=== PATIENT | male | born 2000 | race Caucasian/White ===

== ENCOUNTER → 2020-03-03 | Outpatient (CLI) | payer MEDICAID ==
[2020-03-03 17:12] LABS: APPEARANCE, URINE CLEAR (CLEAR); BACTERIA, URINE AUTO NEGATIVE (NEGATIVE); BILIRUBIN, URINE AUTO NEGATIVE (NEGATIVE); BLOOD, URINE BLOOD NEGATIVE (NEGATIVE); COLOR, URINE YELLOW (YELLOW); GLUCOSE, URINE (UA) AUTO 1+ mg/dL (NEGATIVE); KETONE, URINE AUTO TRACE mg/dL (NEGATIVE); LEUKOCYTE ESTERASE, URINE AUTO NEGATIVE (NEGATIVE); NITRITE, URINE AUTO NEGATIVE (NEGATIVE); PROTEIN, URINE AUTO 1+ mg/dL (NEGATIVE); RBC, URINE AUTO 0 /HPF (0-3); SPECIFIC GRAVITY URINE AUTO 1.029 (1.002-1.035); SQUAMOUS EPITHELIAL CELL UR AU 0 /HPF (0-6); UROBILINOGEN, URINE AUTO 0.2 mg/dL (0.0-2.0); WBC, URINE AUTO 0 /HPF (0-3)
[2020-03-03 17:33] LABS: BASO % 0.3 % (0.0-1.0); EOS # 0.2 10^3/uL (0.0-0.5); EOS % 1.1 % (0.0-3.0); HEMATOCRIT 46.4 % (42.0-52.0); HEMOGLOBIN 15.2 g/dl (13.5-17.5); LYMPH # 2.3 10^3/uL (1.5-5.0); LYMPH % 14.4 % (24.0-44.0); MEAN CORPUSCULAR HEMOGLOBIN 26.4 pg (27.0-33.0); MEAN CORPUSCULAR HGB CONC 32.8 g/dl (32.0-36.5); MEAN CORPUSCULAR VOLUME 80.7 fl (80.0-96.0); MONO # 0.9 10^3/uL (0.0-0.8); MONO % 5.6 % (0.0-5.0); NEUTROPHILS # 12.4 10^3/uL (1.5-8.5); NEUTROPHILS % 78.1 % (36.0-66.0); PLATELET COUNT, AUTOMATED 276 10^3/uL (150-450); RED BLOOD COUNT 5.75 10^6/uL (4.30-6.10); WHITE BLOOD COUNT 15.9 10^3/uL (4.0-10.0)
[2020-03-03 17:45] LABS: ALBUMIN 4.2 GM/DL (3.2-5.2); ALT/SGPT 32 U/L (12-78); BILIRUBIN,TOTAL 0.3 MG/DL (0.2-1.0); BLOOD UREA NITROGEN 12 MG/DL (7-18); CALCIUM LEVEL 9.8 MG/DL (8.5-10.1); CARBON DIOXIDE LEVEL 25 MEQ/L (21-32); CHLORIDE LEVEL 103 MEQ/L (98-107); GLUCOSE, FASTING 174 MG/DL (70-100); POTASSIUM SERUM 4.3 MEQ/L (3.5-5.1); SODIUM LEVEL 137 MEQ/L (136-145); TOTAL PROTEIN 7.8 GM/DL (6.4-8.2)
[2020-03-03 17:57] LABS: HEPATITIS B SURFACE ANTIBODY NEGATIVE (POSITIVE)
[2020-03-03 18:03] LABS: HEPATITIS B SURFACE ANTIGEN NEGATIVE (NEGATIVE)
[2020-03-03 18:38] LABS: HEPATITIS C VIRUS ABY INDEX > 11.0 INDEX (<0.8)
[2020-03-07 05:07] LABS: HEPATITIS B CORE ANTIBODY IGG Negative (Negative)
== END ==
LOC: M LAB 16:01
PROVIDERS: ATTEND Nurse Practitioner Family
DX: Z02.2 Encounter for examination for admission to residential institution (principal)

== ENCOUNTER → 2020-03-08 | Outpatient (CLI) | payer MEDICAID ==
[2020-03-08 14:56] LABS: HEPATITIS B SURFACE ANTIBODY NEGATIVE (POSITIVE); HEPATITIS B SURFACE ANTIGEN NEGATIVE (NEGATIVE)
--- NOTE | 2020-03-09 01:48 | REP ---
INDICATION: QUESTION POSITIVE TB COMPARISON: None. TECHNIQUE: PA and lateral. FINDINGS: The mediastinum and cardiac silhouette are normal. The lung hughes are clear and without acute consolidation, effusion, or pneumothorax. The skeletal structures are intact and normal. IMPRESSION: No acute cardiopulmonary process. <Electronically signed by Justice Olvera > 03/09/20 [id number]
[2020-03-11 02:08] LABS: HEPATITIS A IgG TOTAL Positive (Negative); HEPATITIS C QUANTITATION HCV Not Detected IU/mL (.)
== END ==
LOC: M LAB 13:32
PROVIDERS: ATTEND Nurse Practitioner Family
DX: B18.2 Chronic viral hepatitis C (principal); B15.9 Hepatitis A without hepatic coma; B16.9 Acute hepatitis B without delta-agent and without hepatic coma

== ENCOUNTER → 2020-04-14 | Outpatient (REF) | payer MEDICAID ==
[2020-04-14 16:12] LABS: ALBUMIN 4.5 GM/DL (3.2-5.2); ALT/SGPT 50 U/L (12-78); BILIRUBIN,DIRECT < 0.1 MG/DL (0.0-0.2); BILIRUBIN,TOTAL 0.3 MG/DL (0.2-1.0); TOTAL PROTEIN 7.5 GM/DL (6.4-8.2)
[2020-04-14 17:19] LABS: HIV 1&2 SCREEN CENTAUR NEGATIVE (NEGATIVE)
[2020-04-16 23:07] LABS: HEPATITIS C QUANTITATION HCV Not Detected IU/mL (.)
== END ==
LOC: M SFHCPLAZ 14:10
PROVIDERS: ATTEND Internal Medicine Infectious Disease
DX: Z86.19 Personal history of other infectious and parasitic diseases (principal)

== ENCOUNTER → 2020-08-02 | Outpatient (CLI) | payer MEDICAID ==
[2020-08-02 14:42] LABS: HEMOGLOBIN A1c 5.3 %
[2020-08-02 14:56] LABS: ALBUMIN 4.7 GM/DL (3.2-5.2); ALT/SGPT 60 U/L (12-78); BILIRUBIN,TOTAL 0.3 MG/DL (0.2-1.0); BLOOD UREA NITROGEN 14 MG/DL (7-18); CALCIUM LEVEL 9.9 MG/DL (8.5-10.1); CARBON DIOXIDE LEVEL 30 MEQ/L (21-32); CHLORIDE LEVEL 105 MEQ/L (98-107); CREATININE FOR GFR 0.83 MG/DL (0.70-1.30); GLUCOSE, FASTING 112 MG/DL (70-100); POTASSIUM SERUM 4.6 MEQ/L (3.5-5.1); SODIUM LEVEL 139 MEQ/L (136-145); TOTAL PROTEIN 7.7 GM/DL (6.4-8.2)
== END ==
LOC: M LAB 13:11
PROVIDERS: ATTEND Nurse Practitioner Family
DX: E10.9 Type 1 diabetes mellitus without complications (principal)

== ENCOUNTER → 2020-10-09 | Outpatient (CLI) | payer MEDICAID ==
[~2020-10-09] MED LIST: ATOM60CA PO; BASA100I SC; INSUHUMDS SC; METF10004 PO; NALT50TA4 PO
== END ==
LOC: M LABSMTC 09:03
PROVIDERS: ATTEND Anesthesiology
DX: Z01.818 Encounter for other preprocedural examination (principal); Z11.52 Encounter for screening for COVID-19

== ENCOUNTER 2020-10-14 06:30 | Day surgery (SDC) | payer MEDICAID ==
[~2020-10-14] VITALS: Ht 177.8 cm; Wt 95.3 kg
[~2020-10-14 06:30] MED LIST changes: +LIDOCAINE 1% MDV 20ML VIAL SQ PRN; +LR 1,000 ML IV ONE
[2020-10-14] MEDS ORDERED: LIDOCAINE W/EPINEPHRINE 1% 20ML VIAL As Ordered ONE (08:30)
[2020-10-14] MEDS ORDERED: ONDANSETRON 4MG/2ML VIAL As Ordered ONE (08:59)
[2020-10-14] MEDS ORDERED: propofoL 200 MG/20 ML VIAL As Ordered ONE (08:59)
[2020-10-14] MEDS ORDERED: fentaNYL 250 MCG/5 ML INJECTION (J3010) As Ordered ONE (08:59)
[2020-10-14] MEDS ORDERED: dexameTHASONE 4 MG/ML 1ML VIAL (J1100 PER 1MG) As Ordered ONE (08:59)
[2020-10-14] MEDS ORDERED: MIDAZOLAM INJ 2MG/2ML VIAL (J2250 PER 1MG) As Ordered ONE (08:59)
[2020-10-14] MEDS ORDERED: LIDOCAINE 2% 100MG/5ML SDV (FOR ANES.) As Ordered ONE (08:59)
[2020-10-14] MEDS ORDERED: SUGAMMADEX SODIUM 500 MG/5 ML VIAL (BRIDION) As Ordered ONE (08:59)
[2020-10-14] MEDS ORDERED: ROCURONIUM BROMIDE 50 MG/5 ML VIAL As Ordered ONE (08:59)
[2020-10-14] MEDS ORDERED: fentaNYL 100 MCG/2 ML INJECTION (J3010) As Ordered ONE (09:42)
[2020-10-14] MEDS: fentaNYL 100 MCG/2 ML INJECTION (J3010) IV PRN ×4 (09:44→10:29)
[2020-10-14] MEDS ORDERED: LR 1,000 ML IV SCH ×2 (09:45→10:40)
[2020-10-14] MEDS ORDERED: ONDANSETRON 4MG/2ML VIAL IV PRN (09:45)
[2020-10-14] MEDS ORDERED: oxyCODONE 5MG TAB PO PRN (09:45)
[2020-10-14] MEDS ORDERED: METOCLOPRAMIDE INJ 10MG/2ML VIAL (J2765 PER 1) As Ordered ONE (10:03)
[2020-10-14] MEDS ORDERED: METOCLOPRAMIDE INJ 10MG/2ML VIAL (J2765 PER 1) IV ONE (10:20)
[2020-10-14] MEDS ORDERED: ACETAMINOPHEN *IV* 1,000 MG in IV 1 EA IV ONE (10:20)
[2020-10-14 12:05] VITALS: BP 160/85
--- NOTE | 2020-10-15 11:58 | RO ---
OPERATIVE NOTE DATE OF OPERATION: 10/14/2020 PREOPERATIVE DIAGNOSIS: Impacted teeth. POSTOPERATIVE DIAGNOSIS: Impacted teeth. PROCEDURE PERFORMED: Extraction of teeth 1, 16, 17, 32. SURGEON: Silvestre Malloy DMD. CANE CUTTER: ANESTHESIA: General. ESTIMATED BLOOD LOSS: 5 mL. SPECIMEN: Teeth. COMPLICATIONS: None. DESCRIPTION OF PROCEDURE: The rest of this dictation will be completed in [facility].
== END 2020-10-14 12:15 | disposition home or self-care (01) ==
LOC: M SDC 06:30
PROVIDERS: ATTEND Dentist Oral and Maxillofacial Surgery
DX: K01.1 Impacted teeth (principal); I10 Essential (primary) hypertension; E10.9 Type 1 diabetes mellitus without complications; E78.5 Hyperlipidemia, unspecified; F90.9 Attention-deficit hyperactivity disorder, unspecified type; F19.90 Other psychoactive substance use, unspecified, uncomplicated; F32.9 Major depressive disorder, single episode, unspecified; F41.9 Anxiety disorder, unspecified; Z91.14 Patient's other noncompliance with medication regimen; Z86.79 Personal history of other diseases of the circulatory system; F17.290 Nicotine dependence, other tobacco product, uncomplicated; Z88.8 Allergy status to other drugs, medicaments and biological substances; Z79.899 Other long term (current) drug therapy; Z79.4 Long term (current) use of insulin
CPT/HCPCS: 88300; D7220; D9223; J0131; J1100; J2250; J2405; J2765; J3010

== ENCOUNTER → 2020-12-28 | Outpatient (CLI) | payer MEDICAID ==
[~2020-12-28] MED LIST changes: -LIDOCAINE 1% MDV 20ML VIAL SQ PRN; -LR 1,000 ML IV ONE
[2020-12-28 09:11] LABS: HEMOGLOBIN A1c 5.6 %
[2020-12-28 09:20] LABS: BLOOD UREA NITROGEN 16 MG/DL (7-18); CALCIUM LEVEL 9.5 MG/DL (8.5-10.1); CARBON DIOXIDE LEVEL 30 MEQ/L (21-32); CHLORIDE LEVEL 105 MEQ/L (98-107); CHOLESTEROL LEVEL 225 MG/DL (<200); CHOLESTEROL RISK RATIO 5.232 (<5); CREATININE FOR GFR 0.76 MG/DL (0.70-1.30); GLUCOSE, FASTING 88 MG/DL (70-100); HDL CHOLESTEROL 43 MG/DL (>40); LDL CHOLESTEROL 149 MG/DL (<100); NON-HDL-C 182 MG/DL; POTASSIUM SERUM 4.9 MEQ/L (3.5-5.1); SODIUM LEVEL 139 MEQ/L (136-145); TRIGLYCERIDES LEVEL 163 MG/DL (<150)
[2020-12-28 09:27] LABS: TOTAL 25(OH) VITAMIN D 21.8 NG/ML (30.0-100.0)
== END ==
LOC: M LAB 07:47
PROVIDERS: ATTEND Physician Assistant Medical
DX: E10.65 Type 1 diabetes mellitus with hyperglycemia (principal)

== ENCOUNTER 2021-01-17 12:13 | Emergency (ER) | payer MEDICAID ==
[~2021-01-17] VITALS: Ht 177.8 cm; Wt 100.2 kg
--- NOTE | 2021-01-17 13:46 | REP ---
INDICATION: trauma. COMPARISON: None. TECHNIQUE: Eight views, four views of each foot. Bilateral foot series. FINDINGS: Four views of the right foot demonstrate overall normal mineralization. Joint spaces are preserved. No erosive changes seen. No fracture or subluxation is observed. There is a minimal hallux valgus. Four views of the left foot demonstrate overall normal mineralization as well. No fracture or subluxation is seen. No evidence of arthropathy. IMPRESSION: Negative bilateral foot radiographs. <Electronically signed by Mark Anthony Zaidi > 01/17/21 [id number]
[2021-01-17 15:10] VITALS: BP 130/65
== END 2021-01-17 15:10 | disposition home or self-care (01) ==
LOC: M ED 12:13
DX: S90.811A Abrasion, right foot, initial encounter (principal); S90.30XA Contusion of unspecified foot, initial encounter; W55.19XA Other contact with horse, initial encounter; Y92.099 Unspecified place in other non-institutional residence as the place of occurrence of the external cause; Y93.9 Activity, unspecified; Y99.9 Unspecified external cause status; E11.9 Type 2 diabetes mellitus without complications; Z79.4 Long term (current) use of insulin

== ENCOUNTER 2021-07-18 23:45 | Emergency (ER) | payer MEDICAID, OTHER ==
[~2021-07-18] VITALS: Ht 177.8 cm; Wt 111.0 kg
[2021-07-19] MEDS ORDERED: GI COCKTAIL 50ML BTL(HYOSCYAMINE/MAALOX/LIDOCAINE VISCOUS)(1:3:1) PO ONE (00:30)
[2021-07-19] MEDS ORDERED: PANTOPRAZOLE 40MG VIAL (C9113 PER 1) IV ONE (00:30)
[2021-07-19 01:01] LABS: BASO # 0.1 10^3/uL (0.0-0.2); BASO % 0.5 % (0.0-1.0); EOS # 0.3 10^3/uL (0.0-0.5); HEMATOCRIT 42.4 % (42.0-52.0); HEMOGLOBIN 13.9 g/dl (13.5-17.5); LYMPH # 3.3 10^3/uL (1.5-5.0); LYMPH % 30.8 % (24.0-44.0); MEAN CORPUSCULAR HEMOGLOBIN 27.4 pg (27.0-33.0); MEAN CORPUSCULAR HGB CONC 32.8 g/dl (32.0-36.5); MEAN CORPUSCULAR VOLUME 83.5 fl (80.0-96.0); MONO # 0.9 10^3/uL (0.0-0.8); MONO % 8.3 % (2.0-8.0); NEUTROPHILS # 6.1 10^3/uL (1.5-8.5); NEUTROPHILS % 57.1 % (36.0-66.0); PLATELET COUNT, AUTOMATED 240 10^3/uL (150-450); RED BLOOD COUNT 5.08 10^6/uL (4.30-6.10); WHITE BLOOD COUNT 10.6 10^3/uL (4.0-10.0)
[2021-07-19 01:24] LABS: CK-MB VALUE MASS 4.5 NG/ML (<3.6); MB/CK RELATIVE INDEX 1.49 (< OR =4)
[2021-07-19 01:29] LABS: ALBUMIN 4.1 GM/DL (3.2-5.2); ALT/SGPT 61 U/L (12-78); BILIRUBIN,DIRECT < 0.1 MG/DL (0.0-0.2); BILIRUBIN,TOTAL 0.2 MG/DL (0.2-1.0); BLOOD UREA NITROGEN 15 MG/DL (7-18); CALCIUM LEVEL 9.3 MG/DL (8.5-10.1); CARBON DIOXIDE LEVEL 28 MEQ/L (21-32); CHLORIDE LEVEL 107 MEQ/L (98-107); CREATININE FOR GFR 0.97 MG/DL (0.70-1.30); FREE T4 0.81 NG/DL (0.76-1.46); GLOMERULAR FILTRATION RATE > 60.0 (>60); GLUCOSE, FASTING 143 MG/DL (70-100); LIPASE 84 U/L (73-393); POTASSIUM SERUM 3.9 MEQ/L (3.5-5.1); SODIUM LEVEL 140 MEQ/L (136-145)
[2021-07-19] MEDS ORDERED: ISOVUE-370 76% 100ML VIAL As Ordered ONE (02:09)
[2021-07-19] MEDS ORDERED: PROT1TAB2 PO (04:51)
[2021-07-19] MEDS ORDERED: SUCR1SS PO (04:52)
[2021-07-19 05:00] VITALS: BP 118/57
== END 2021-07-19 05:18 | disposition home or self-care (01) ==
LOC: M ED 23:45 → EDBD 23:45 → M ED 07-19 05:18
DX: K29.80 Duodenitis without bleeding (principal); E11.9 Type 2 diabetes mellitus without complications; F17.200 Nicotine dependence, unspecified, uncomplicated; Z79.4 Long term (current) use of insulin; Z79.899 Other long term (current) drug therapy
CPT/HCPCS: 71046; 74177; 80048; 80076; 82550; 82553; 83690; 84439; 84443; 85025; 85379; 93005; 93041; 94760; 96374; 99285; C9113; Q9967

== ENCOUNTER → 2021-08-31 | Outpatient (REF) | payer OTHER ==
[~2021-08-31] MED LIST changes: +PROT1TAB2 PO; +SUCR1SS PO
== END ==
LOC: M LAB REF 23:37
PROVIDERS: ATTEND Physician Assistant
DX: L03.119 Cellulitis of unspecified part of limb (principal)

== ENCOUNTER 2021-11-14 02:10 | Emergency (ER) | payer OTHER ==
[~2021-11-14] VITALS: Ht 177.8 cm; Wt 108.6 kg
[2021-11-14 02:10] VITALS: BP 171/93
[2021-11-14] MEDS ORDERED: VYVA60CA PO (02:15)
== END 2021-11-14 03:10 | disposition left against medical advice (07) ==
LOC: M ED 02:10
DX: Z53.21 Procedure and treatment not carried out due to patient leaving prior to being seen by health care provider (principal)

== ENCOUNTER 2022-01-19 05:10 | Emergency (ER) | payer OTHER ==
[~2022-01-19 05:10] MED LIST changes: +VYVA60CA PO
== END 2022-01-19 05:51 | disposition left against medical advice (07) ==
LOC: M ED 05:10
DX: Z53.21 Procedure and treatment not carried out due to patient leaving prior to being seen by health care provider (principal)

== ENCOUNTER → 2022-06-05 | Outpatient (CLI) | payer OTHER ==
[2022-06-05 11:47] LABS: HEMOGLOBIN A1c 8.2 % (4.0-6.0)
[2022-06-05 11:58] LABS: BLOOD UREA NITROGEN 16 MG/DL (9-23); CALCIUM LEVEL 9.1 MG/DL (8.5-10.1); CARBON DIOXIDE LEVEL 28 MMOL/L (20-31); CHLORIDE LEVEL 100 MMOL/L (98-107); CHOLESTEROL LEVEL 188 MG/DL (<200); CHOLESTEROL RISK RATIO 4.84 (<5); CREATININE FOR GFR 0.69 MG/DL (0.70-1.30); GLOMERULAR FILTRATION RATE > 60.0 (>60); GLUCOSE, FASTING 206 MG/DL (60-100); HDL CHOLESTEROL 38.8 MG/DL (>40); LDL CHOLESTEROL 81.6 MG/DL (<100); NON-HDL-C 149 MG/DL; POTASSIUM SERUM 4.5 MMOL/L (3.5-5.1); SODIUM LEVEL 137 MMOL/L (136-145); TRIGLYCERIDES LEVEL 338 MG/DL (<150)
== END ==
LOC: M LAB 10:13
PROVIDERS: ATTEND Physician Assistant Medical
DX: E10.65 Type 1 diabetes mellitus with hyperglycemia (principal)

== ENCOUNTER 2022-09-18 22:23 | Emergency (ER) | payer OTHER ==
[~2022-09-18] VITALS: Ht 177.8 cm; Wt 104.0 kg
[2022-09-18 23:12] LABS: BASO % 0.4 % (0.0-1.0); EOS # 0.1 10^3/uL (0.0-0.5); EOS % 1.2 % (0.0-3.0); HEMATOCRIT 41.6 % (42.0-52.0); HEMOGLOBIN 14.2 g/dl (13.5-17.5); LYMPH # 1.9 10^3/uL (1.5-5.0); LYMPH % 18.1 % (24.0-44.0); MEAN CORPUSCULAR HEMOGLOBIN 28.6 pg (27.0-33.0); MEAN CORPUSCULAR HGB CONC 34.1 g/dl (32.0-36.5); MEAN CORPUSCULAR VOLUME 83.7 fl (80.0-96.0); MONO # 0.7 10^3/uL (0.0-0.8); MONO % 6.6 % (2.0-8.0); NEUTROPHILS # 7.5 10^3/uL (1.5-8.5); NEUTROPHILS % 73.4 % (36.0-66.0); PLATELET COUNT, AUTOMATED 218 10^3/uL (150-450); RED BLOOD COUNT 4.97 10^6/uL (4.30-6.10); WHITE BLOOD COUNT 10.3 10^3/uL (4.0-10.0)
[2022-09-18 23:43] LABS: LIPASE 25 U/L (12-53)
[2022-09-18 23:46] LABS: ALBUMIN 3.9 G/DL (3.2-5.2); ALKALINE PHOSPHATASE 61 U/L (46-116); ALT/SGPT 35 U/L (7.0-40); AST/SGOT 19 U/L (<34); BILIRUBIN,DIRECT 0.1 MG/DL (<0.4); BILIRUBIN,TOTAL 0.4 MG/DL (0.3-1.2); BLOOD UREA NITROGEN 14 MG/DL (9-23); CALCIUM LEVEL 9.1 MG/DL (8.5-10.1); CARBON DIOXIDE LEVEL 25 MMOL/L (20-31); CHLORIDE LEVEL 105 MMOL/L (98-107); CREATININE FOR GFR 0.72 MG/DL (0.70-1.30); GLOMERULAR FILTRATION RATE > 60.0 (>60); GLUCOSE, FASTING 217 MG/DL (60-100); SODIUM LEVEL 140 MMOL/L (136-145); TOTAL PROTEIN 6.5 G/DL (5.7-8.2)
[2022-09-19] MEDS ORDERED: SIME180C25 PO (00:10)
[2022-09-19] MEDS ORDERED: NAPR-837 PO (00:10)
[2022-09-19] MEDS ORDERED: SIMETHICONE 80MG CHEW TAB PO ONE (00:15)
[2022-09-19 00:20] VITALS: BP 130/66
== END 2022-09-19 00:35 | disposition home or self-care (01) ==
LOC: M ED 22:23
DX: S39.011A Strain of muscle, fascia and tendon of abdomen, initial encounter (principal); X50.0XXA Overexertion from strenuous movement or load, initial encounter; Y92.89 Other specified places as the place of occurrence of the external cause; Y93.89 Activity, other specified; Y99.8 Other external cause status; F17.200 Nicotine dependence, unspecified, uncomplicated; R14.3 Flatulence; Z79.899 Other long term (current) drug therapy; Z79.84 Long term (current) use of oral hypoglycemic drugs; E11.9 Type 2 diabetes mellitus without complications

== ENCOUNTER 2023-02-05 15:21 | Inpatient (IN) | payer OTHER ==
[~2023-02-05] VITALS: Ht 177.8 cm; Wt 97.0 kg
[~2023-02-05 15:21] MED LIST changes: +NAPR-837 PO; +SIME180C25 PO
[2023-02-05] MEDS ORDERED: NS 1,000 ML IV ONE ×2 (15:50→17:15)
[2023-02-05 16:20] LABS: BASO # 0.1 10^3/uL (0.0-0.2); BASO % 0.5 % (0.0-1.0); EOS # 0.1 10^3/uL (0.0-0.5); EOS % 1.2 % (0.0-3.0); HEMATOCRIT 47.7 % (42.0-52.0); HEMOGLOBIN 16.6 g/dl (13.5-17.5); LYMPH # 1.7 10^3/uL (1.5-5.0); LYMPH % 17.2 % (24.0-44.0); MEAN CORPUSCULAR HGB CONC 34.8 g/dl (32.0-36.5); MEAN CORPUSCULAR VOLUME 83.4 fl (80.0-96.0); MONO # 0.8 10^3/uL (0.0-0.8); MONO % 7.9 % (2.0-8.0); NEUTROPHILS # 7.1 10^3/uL (1.5-8.5); NEUTROPHILS % 72.7 % (36.0-66.0); PLATELET COUNT, AUTOMATED 213 10^3/uL (150-450); RED BLOOD COUNT 5.72 10^6/uL (4.30-6.10); WHITE BLOOD COUNT 9.8 10^3/uL (4.0-10.0)
[2023-02-05 16:50] LABS: ETHYL ALCOHOL (ETHANOL) < 0.003 % (0.000-0.010)
[2023-02-05 16:52] LABS: ALBUMIN 3.6 G/DL (3.2-5.2); ALKALINE PHOSPHATASE 64 U/L (46-116); ALT/SGPT 32 U/L (7.0-40); AST/SGOT 22 U/L (<34); BILIRUBIN,DIRECT 0.1 MG/DL (<0.4); BILIRUBIN,TOTAL 0.4 MG/DL (0.3-1.2); BLOOD UREA NITROGEN 13 MG/DL (9-23); CALCIUM LEVEL 8.7 MG/DL (8.5-10.1); CARBON DIOXIDE LEVEL 26 MMOL/L (20-31); CHLORIDE LEVEL 101 MMOL/L (98-107); CREATININE FOR GFR 0.59 MG/DL (0.70-1.30); GLOMERULAR FILTRATION RATE > 60.0 (>60); GLUCOSE, FASTING 368 MG/DL (60-100); POTASSIUM SERUM 5.3 MMOL/L (3.5-5.1); SALICYLATE LEVEL < 3.0 MG/DL (<30); SODIUM LEVEL 136 MMOL/L (136-145); TOTAL PROTEIN 6.7 G/DL (5.7-8.2)
[2023-02-05 16:54] LABS: THYROID STIMULATING HORMONE 1.511 uIU/ML (0.55-4.78)
[2023-02-05 16:55] LABS: RSV AMPLIFICATION NEGATIVE (NEGATIVE)
[2023-02-05 16:56] LABS: ABG BASE EXCESS 1.5 (-2.0-2.0); ABG HCO3 26.3 MMOL/L (22.0-26.0); ABG O2 SATURATION 97.6 % (95.0-99.0); ABG STANDARD HCO3 25.8 MMOL/L. (22.0-26.0); ABG TOTAL CO2 27.6 MMOL/L (22.0-29.0); ABG pH (ARTERIAL) 7.415 UNITS (7.350-7.450)
[2023-02-05 16:59] LABS: CPK CREATINE PHOSPHOKINASE 150 U/L (46-171)
[2023-02-05] MEDS ORDERED: HumuLIN R (REGULAR) INSULIN (NovoLIN R) **100U/ML** PER UNIT IV ONE (17:15)
[2023-02-05 19:18] LABS: BARBITURATES URINE NEGATIVE (NEGATIVE); COCAINE METABOLITE URINE NEGATIVE (NEGATIVE); METHADONE URINE NEGATIVE (NEGATIVE); OPIATES URINE NEGATIVE (NEGATIVE)
[2023-02-05 19:19] LABS: BENZODIAZEPINES URINE NEGATIVE (NEGATIVE); PHENCYCLIDINE URINE NEGATIVE (NEGATIVE)
[2023-02-05 19:21] LABS: AMPHETAMINES LEVEL URINE POSITIVE (NEGATIVE); CANNABINOIDS URINE POSITIVE (NEGATIVE)
[2023-02-05] MEDS ORDERED: LORazepam 2 MG TAB PO ONE (20:35)
[2023-02-05] MEDS ORDERED: LEVEMIR (INSULIN DETEMIR) 1 UNITS/0.01ML SC ONE (21:20)
[2023-02-06] MEDS ORDERED: MED REC CURRENTLY UNOBTAINABLE XX SCH (06:40)
[2023-02-06] MEDS ORDERED: DEXTROSE 50% 50ML SYRINGE IV PRN (08:20)
[2023-02-06] MEDS ORDERED: GLUCOSE 4GM CHEW TABLET PO PRN (08:20)
[2023-02-06] MEDS ORDERED: GLUCAGON INJ 1MG VIAL SC PRN (08:20)
[2023-02-06] MEDS: INSULIN LISPRO (NovoLOG) PER UNIT SC SCH ×4 (08:58→22:11)
[2023-02-06] MEDS ORDERED: BUSP15TA47 PO (09:47)
[2023-02-06] MEDS ORDERED: LANTINJ4 SC (09:49)
[2023-02-06] MEDS ORDERED: ADME100I SC (09:49)
[2023-02-06] MEDS ORDERED: HOME MED LIST COMPLETE! XX SCH (09:55)
[2023-02-06] MEDS: LEVEMIR (INSULIN DETEMIR) 1 UNITS/0.01ML SC SCH (22:10)
[2023-02-06] MEDS ORDERED: hydrOXYzine 50 MG TAB PO ONE (23:50)
[2023-02-07] MEDS: INSULIN LISPRO (NovoLOG) PER UNIT SC SCH ×4 (07:30→22:07)
[2023-02-07] MEDS: busPIRone 5 MG TAB PO SCH ×2 (10:01→22:01)
[2023-02-07] MEDS ORDERED: hydrOXYzine 50 MG TAB PO ONE (20:00)
[2023-02-07] MEDS: LEVEMIR (INSULIN DETEMIR) 1 UNITS/0.01ML SC SCH (22:08)
[2023-02-07] MEDS ORDERED: IBUPROFEN 400MG TAB PO PRN (23:10)
[2023-02-07] MEDS ORDERED: MAALOX 30 ML SUSP *UDC PO PRN (23:10)
[2023-02-07] MEDS ORDERED: GLUCAGON INJ 1MG VIAL SC PRN (23:10)
[2023-02-07] MEDS ORDERED: DEXTROSE 50% 50ML SYRINGE IV PRN (23:10)
[2023-02-07] MEDS ORDERED: ACETAMINOPHEN TAB 650MG DOSE (2X325MG) PO PRN (23:10)
[2023-02-07] MEDS ORDERED: GLUCOSE 4GM CHEW TABLET PO PRN (23:10)
[2023-02-07] MEDS ORDERED: MOM 30ML SUSPENSION UDC PO PRN (23:10)
[2023-02-08 01:30] VITALS: BP 136/75; TEMP 97.9; O2SAT 98
[2023-02-08 06:30] VITALS: BP 139/97; TEMP 97.3; O2SAT 100
[2023-02-08] MEDS: INSULIN LISPRO (NovoLOG) PER UNIT SC SCH ×4 (07:16→21:35)
[2023-02-08] MEDS: busPIRone 5 MG TAB PO SCH ×2 (09:34→21:37)
[2023-02-08] MEDS ORDERED: FLUoxetine 10 MG CAP PO ONE (13:30)
[2023-02-08] MEDS: diphenhydrAMINE 25MG CAP PO PRN (16:05)
[2023-02-08] MEDS: LEVEMIR (INSULIN DETEMIR) 1 UNITS/0.01ML SC SCH (21:36)
[2023-02-09 06:52] VITALS: BP 142/79; TEMP 98.5; O2SAT 99
[2023-02-09] MEDS: INSULIN LISPRO (NovoLOG) PER UNIT SC SCH ×4 (07:55→21:08)
[2023-02-09] MEDS: FLUoxetine 20MG CAP PO SCH (07:55)
[2023-02-09] MEDS: busPIRone 5 MG TAB PO SCH ×2 (07:55→21:10)
[2023-02-09] MEDS: diphenhydrAMINE 25MG CAP PO PRN (14:04)
[2023-02-09 16:26] VITALS: BP 130/79; TEMP 97.8; O2SAT 100
[2023-02-09] MEDS: LEVEMIR (INSULIN DETEMIR) 1 UNITS/0.01ML SC SCH (21:08)
[2023-02-10] MEDS: INSULIN LISPRO (NovoLOG) PER UNIT SC SCH ×4 (07:29→21:00)
[2023-02-10] MEDS: busPIRone 5 MG TAB PO SCH ×2 (07:30→21:38)
[2023-02-10] MEDS: FLUoxetine 20MG CAP PO SCH (07:30)
[2023-02-10 16:09] VITALS: BP 131/76; TEMP 98.5; O2SAT 100
[2023-02-10] MEDS: traZODone 50 MG TAB PO PRN (21:38)
[2023-02-10] MEDS: LEVEMIR (INSULIN DETEMIR) 1 UNITS/0.01ML SC SCH (21:40)
[2023-02-10] MEDS ORDERED: INSULIN LISPRO (NovoLOG) PER UNIT SC ONE ×2 (21:50→23:00)
[2023-02-10 23:02] LABS: BLOOD UREA NITROGEN 21 MG/DL (9-23); CALCIUM LEVEL 8.8 MG/DL (8.5-10.1); CARBON DIOXIDE LEVEL 27 MMOL/L (20-31); CHLORIDE LEVEL 94 MMOL/L (98-107); GLOMERULAR FILTRATION RATE > 60.0 (>60); GLUCOSE, FASTING 543 MG/DL (60-100); POTASSIUM SERUM 4.6 MMOL/L (3.5-5.1); SODIUM LEVEL 129 MMOL/L (136-145)
[2023-02-11 06:10] VITALS: BP 139/83; TEMP 98.2; O2SAT 100
[2023-02-11 06:56] LABS: HEMOGLOBIN A1c 7.6 % (4.0-6.0)
[2023-02-11] MEDS: INSULIN LISPRO (NovoLOG) PER UNIT SC SCH ×4 (07:07→20:11)
[2023-02-11] MEDS: busPIRone 5 MG TAB PO SCH ×2 (08:44→20:06)
[2023-02-11] MEDS: FLUoxetine 20MG CAP PO SCH (08:44)
[2023-02-11] MEDS: LEVEMIR (INSULIN DETEMIR) 1 UNITS/0.01ML SC SCH ×2 (08:46→20:11)
[2023-02-11] MEDS: diphenhydrAMINE 25MG CAP PO PRN (15:47)
[2023-02-11 18:34] VITALS: BP 148/72; TEMP 98; O2SAT 95
[2023-02-11] MEDS: traZODone 50 MG TAB PO PRN (20:06)
[2023-02-12 06:04] VITALS: BP 124/67; TEMP 98.3; O2SAT 95
[2023-02-12] MEDS: INSULIN LISPRO (NovoLOG) PER UNIT SC SCH (07:07)
[2023-02-12] MEDS: FLUoxetine 20MG CAP PO SCH (09:42)
[2023-02-12] MEDS: busPIRone 5 MG TAB PO SCH (09:42)
[2023-02-12] MEDS: LEVEMIR (INSULIN DETEMIR) 1 UNITS/0.01ML SC SCH (09:44)
[2023-02-12] MEDS ORDERED: FLUO20CA22 PO (09:56)
[2023-02-12] MEDS ORDERED: INSUHUMDS SC ×2 (09:56)
[2023-02-12] MEDS ORDERED: BUSP5TA PO (09:56)
[2023-02-12] MEDS ORDERED: INSUDET SC (09:56)
[2023-02-12] MEDS ORDERED: TRAZ-252 PO (09:56)
[2023-02-12] MEDS ORDERED: BUSP15TA47 PO (11:46)
== END 2023-02-12 11:24 | disposition home or self-care (01) | DRG 755 ==
LOC: M ED 15:21 → EEVIPCON 02-07 23:06 → M ED INP 02-07 23:06 → M PSY 02-08 01:07
PROVIDERS: ADMIT Student in an Organized Health Care Education/Training Program; ATTEND Student in an Organized Health Care Education/Training Program
DX: F43.23 Adjustment disorder with mixed anxiety and depressed mood (principal); E11.9 Type 2 diabetes mellitus without complications; F15.14 Other stimulant abuse with stimulant-induced mood disorder; F12.10 Cannabis abuse, uncomplicated; F17.210 Nicotine dependence, cigarettes, uncomplicated; T43.592A Poisoning by other antipsychotics and neuroleptics, intentional self-harm, initial encounter; Z63.5 Disruption of family by separation and divorce; Z81.3 Family history of other psychoactive substance abuse and dependence; Z56.0 Unemployment, unspecified; Z81.1 Family history of alcohol abuse and dependence; Z81.8 Family history of other mental and behavioral disorders; Z62.812 Personal history of neglect in childhood; Z79.4 Long term (current) use of insulin; Z79.899 Other long term (current) drug therapy